=== PATIENT | male | born 1950 | race Caucasian/White ===

== ENCOUNTER → 2019-03-25 10:51 | Outpatient (BNVA) | payer OTHER, SELFPAY | PROVIDERS: Family Provider Internal Medicine; PCP Internal Medicine; Referring Provider Nurse Practitioner; Visit Provider Specialist | DX: M19.031 Primary osteoarthritis, right wrist (principal) | CPT/HCPCS: 73110 ==

== ENCOUNTER → 2019-04-01 10:43 | Outpatient (BNVA) | payer OTHER, SELFPAY | PROVIDERS: Family Provider Internal Medicine; PCP Internal Medicine; Visit Provider Psychiatry & Neurology Neurology | DX: G56.03 Carpal tunnel syndrome, bilateral upper limbs (principal) | CPT/HCPCS: 95886; 95911 ==

== ENCOUNTER → 2019-04-20 08:01 | Outpatient (BNVA) | payer OTHER, BC, SELFPAY | PROVIDERS: Family Provider Internal Medicine; PCP Internal Medicine; Visit Provider Urology | DX: N39.9 Disorder of urinary system, unspecified (principal); N52.9 Male erectile dysfunction, unspecified; C61 Malignant neoplasm of prostate | CPT/HCPCS: 81001 ==

== ENCOUNTER 2019-08-31 08:22 | Outpatient (CLI) | payer OTHER, SELFPAY ==
--- NOTE | 2019-08-31 08:51 | XR_ITS ---
WS: [id number] CHEST 2 VIEWS HISTORY: PROSTATE CANCER COMPARISON: None available. Lungs: Clear with no abnormality. No pleural effusion or pneumothorax. Cardiac size: Normal. Mediastinum/Aorta: Normal mediastinum. Bones: Prior anterior cervical fusion. Advanced degenerative changes at the AC joints bilaterally. Pr ior RIGHT rotator cuff repair. XR/XR chest 2V* [id number] IMPRESSION: No acute cardiopulmonary disease. Negative chest.
[2019-08-31 08:53] LABS: Basophils # 0.1 10^3/uL (0.0-0.1); Basophils % 1.3 %; Eosinophils # 0.2 10^3/uL (0.0-0.8); Eosinophils % 2.8 %; Hematocrit 47.7 % (42.0-52.0); Hemoglobin 14.6 g/dL (11.7-16.6); Lymphocytes # 1.4 10^3/uL (0.8-4.8); Mean Corpuscular HGB Conc 30.6 g/dL (30.0-36.0); Mean Corpuscular Hemoglobin 25.7 pg (28.0-34.0); Mean Corpuscular Volume 83.8 fL (80-94); Mean Platelet Volume 12.5 fL (7.4-10.4); Monocytes # 0.4 10^3/uL (0.2-0.9); Neutrophils % 65.7 %; Nucleated Red Blood Cells % 0 %; Platelet Count 101 10^3/cmm (130-400); Red Blood Count 5.69 10^6/uL (4.1-5.3); Red Cell Distribution Width 15.1 % (12.1-15.1); White Blood Count 6.1 10^3/uL (4.0-10.0)
[2019-08-31 09:14] LABS: Alanine Aminotransferase 14 U/L (0-41); Albumin Level 4.4 g/dL (3.5-5.2); Alkaline Phosphatase 63 IU/L (40-130); Anion Gap 16.6 (5-19); Aspartate Amino Transferase 16 U/L (0-40); Blood Urea Nitrogen 18 mg/dL (8-23); Calcium 9.4 mg/dL (8.5-10.5); Carbon Dioxide 28 mmol/L (22-29); Chloride 101 mmol/L (98-107); Globulin 2.7 g/dL (1.3-4.6); Glomerular Filtration Rate 84.2 mL/min (90-130); Glucose 144 mg/dL (65-115); Osmolality Calculated 293 mOsm/kg (285-295); Potassium 3.6 mmol/L (3.5-5.1); Sodium 142 mmol/L (136-145); Total Bilirubin 0.4 mg/dL (0.15-1.2); Total Protein 7.1 g/dL (6.6-8.7)
--- NOTE | 2019-08-31 10:32 | ECG_ITS ---
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 Measurements Intervals Foster Rate: 51 P: 49 LA: 181 QRS: 78 QRSD: 100 T: 79 QT: 450 QTc: 414 Interpretive Statements SINUS BRADYCARDIA No previous ECG available for comparison Electronically Signed On 08-31-2019 18:28:05 CDT by Ronda Kline M.D. [id number]
== END 2019-08-31 08:23 | disposition home or self-care (01) ==
LOC: LAB 08:24
PROVIDERS: Family Provider Internal Medicine; PCP Internal Medicine; Visit Provider Urology
DX: Z01.818 Encounter for other preprocedural examination (principal); C61 Malignant neoplasm of prostate
CPT/HCPCS: 36415; 71046; 80053; 81001; 85025; 93005

== ENCOUNTER → 2020-02-10 09:27 | Outpatient (BNVA) | payer OTHER, BC, SELFPAY | PROVIDERS: Family Provider Internal Medicine; PCP Internal Medicine; Visit Provider Urology | DX: Z01.812 Encounter for preprocedural laboratory examination (principal); Z20.828 Contact with and (suspected) exposure to other viral communicable diseases | CPT/HCPCS: 87635 ==

== ENCOUNTER → 2021-01-23 14:00 | Outpatient (BNVA) | payer OTHER, SELFPAY | PROVIDERS: Family Provider Internal Medicine; PCP Internal Medicine; Referring Provider Nurse Practitioner; Visit Provider Specialist | DX: M25.511 Pain in right shoulder (principal); Z98.890 Other specified postprocedural states | CPT/HCPCS: 73030 ==

== ENCOUNTER → 2021-04-03 10:05 | Outpatient (BNVA) | payer OTHER, SELFPAY | PROVIDERS: Family Provider Internal Medicine; PCP Internal Medicine; Visit Provider Surgery | DX: Z11.52 Encounter for screening for COVID-19 (principal) | CPT/HCPCS: 87635 ==

== ENCOUNTER 2021-04-07 08:11 | Day surgery (SDC) | payer OTHER, BC, SELFPAY ==
[2021-04-05 14:54] VITALS: BMI 27.8
--- NOTE | 2021-04-07 08:39 | P.ANESASSM_ITS ---
Pre-Anesthetic Assessment Height/Weight: Height 1.8 m Weight 90.718 kg Preop Diagnosis: upper gi symptoms Operation Date: 04/07/21 09:30 Proposed Procedures p EGD/Colon 77598 K21.9(Not Applicable) - Kike Muller MD s Colonoscopy 63527 Z12.11(Not Applicable) - Kike Muller MD Familial anesthetic complications: Bibe Was Beta Nohemi taken within 24 hours: N/A Was Clonidine taken within 24 hours: N/A Last intake: 04/06 Social No alcohol and No tobacco Exam alert, oriented x 3, clear to auscultation bilaterally and regular rate & rhythm Airway Submandibular: within normal limits Cervical ROM: within normal limits Mallampati: Class II Dentition: chipped Pulmonary Chronic Obstructive Pulmonary Disease CV/HEM Hypertension METS > 4 Hx of radical prostatectomy Hepatic Hemochromatosis GI Gastroesophageal Reflux Disease Metabolic None reported Musc/skel Lower Back Pain Hx of back and neck surgery Neuropsych None reported Anesthetic Plan ASA status: 3 (70 year old male with hx of COPD, HTN, hemachromatosis, and GERD s/p radical prostatectomy ) Other: I discussed with the patient risks, goals, and benefits of MAC and general anesthesia. We discussed spectrum of MAC anesthesia including conversion to general as well as possibility of recall of intraoperative stimuli including discomfort/pain. Patient agrees to proceed with MAC. Risk of > 500 ml blood loss (7ml/kg in children): No Medications/Allergies Home Medications Medication Instructions Recorded Confirmed Last Taken Type alprazolam 0.5 mg tablet (Xanax) 0.5 mg PO BID 03/25/19 04/05/21 Unknown History cetirizine 10 mg tablet (Zyrtec) 5 mg PO ONCE 03/25/19 04/05/21 Unknown History celecoxib 100 mg capsule 100 mg PO DAILY 04/20/19 04/05/21 Unknown History losartan 100 1 tab PO DAILY tab 04/20/19 04/05/21 Unknown History mg-hydrochlorothiazide 12.5 mg tablet metformin 500 mg tablet 500 mg PO DAILY 04/20/19 04/05/21 Unknown History amlodipine 5 mg tablet 5 mg PO DAILY 01/23/21 04/05/21 Unknown History gabapentin 300 mg capsule 300 mg PO TID 01/23/21 04/05/21 Unknown History omeprazole 40 mg capsule,delayed 40 mg PO DAILY 02/06/21 04/05/21 Unknown History release Allergies Allergy/AdvReac Type Severity Reaction Status Date / Time codeine AdvReac Unknown heartburn Verified 02/06/21 08:02 [facility] Anesthesia Medical History Adenocarcinoma of prostate COPD (chronic obstructive pulmonary disease) Erectile dysfunction GERD (gastroesophageal reflux disease) Hemochromatosis Stress incontinence, male Surgical History H/O arthroscopic knee surgery H/O esophagogastroduodenoscopy History of back surgery History of bilateral carpal tunnel release History of fusion of cervical spine History of radical prostatectomy ROBOTIC History of rotator cuff surgery Right side 3x Hx of cataract surgery bilateral Hx of oral surgery Status post colonoscopy Family History Mother , at age 84 -heart disease No problems noted. Father , at age 83- Dementia Other CAD (coronary artery disease) Cancer Diabetes Social History Alcohol intake: current Alcohol intake frequency: holidays/special occasions only Adopted: No Caregiver/support person: No Lives independently: No Household members: spouse Marital status: Current occupational status: employed Data Anesthesia Cardiac Studies: No Data to Display
[2021-04-07 08:48] VITALS: BP 162/88; PULSE 63; RESP 18; TEMP 36.7; O2SAT 99
[2021-04-07] MEDS: sodium chloride 0.9% 1,000 ML 30 ML IV (09:03)
--- NOTE | 2021-04-07 09:17 | P.HP_ITS ---
Same Day Surgery H&P Indication for Procedure/HPI DATE OF PROCEDURE: April 07, 2021 CHIEF COMPLAINT/INDICATIONFOR SURGICAL PROCEDURE: screening PREOP DIAGNOSIS: upper gi symptoms PLANNED PROCEDURE: Operation Date: 04/07/21 09:30 Proposed Procedures p EGD/Colon 16164 K21.9(Not Applicable) - Kike Muller MD s Colonoscopy 97729 Z12.11(Not Applicable) - Kike Muller MD Medications/Allergies* Home Medications Medication Instructions Recorded Confirmed Type alprazolam 0.5 mg tablet (Xanax) 0.5 mg PO DAILY 03/25/19 04/07/21 History cetirizine 10 mg tablet (Zyrtec) 5 mg PO ONCE 03/25/19 04/07/21 History celecoxib 100 mg capsule (Celebrex) 100 mg PO DAILY 04/20/19 04/07/21 History losartan 100 1 tab PO DAILY tab 04/20/19 04/07/21 History mg-hydrochlorothiazide 12.5 mg tablet metformin 500 mg tablet 500 mg PO DAILY 04/20/19 04/07/21 History amlodipine 5 mg tablet 5 mg PO DAILY 01/23/21 04/07/21 History gabapentin 300 mg capsule 300 mg PO TID 01/23/21 04/07/21 History omeprazole 40 mg capsule,delayed 40 mg PO DAILY 02/06/21 04/07/21 History release Allergies/Adverse Reactions Allergy/AdvReac Type Severity Reaction Status Date / Time codeine AdvReac Unknown heartburn Verified 04/07/21 08:45 Current Medications: Generic Name Dose Route Start Last Admin Trade Name Freq PRN Reason Stop Dose Admin Sodium Chloride 1,000 mls @ 30 mls/hr 04/07/21 08:30 04/07/21 09:03 Sodium Chloride 0.9% IV 04/08/21 08:29 30 mls/hr .Q24H MED Administration Pertinent History/Comorbid Conditions* Medical History (Updated 02/06/21 @ 08:53 by Kike Muller MD) Adenocarcinoma of prostate COPD (chronic obstructive pulmonary disease) Erectile dysfunction GERD (gastroesophageal reflux disease) Hemochromatosis Stress incontinence, male Surgical History (Updated 02/06/21 @ 08:26 by Kike Muller MD) H/O arthroscopic knee surgery H/O esophagogastroduodenoscopy History of back surgery History of bilateral carpal tunnel release History of fusion of cervical spine History of radical prostatectomy ROBOTIC History of rotator cuff surgery Right side 3x Hx of cataract surgery bilateral Hx of oral surgery Status post colonoscopy Family History (Updated 04/20/19 @ 07:58 by Hamida Khan LPN) Father, at age 83- Mother, at age 84 -heart disease Diabetes CAD (coronary artery disease) Dementia Father Cancer Social History Alcohol intake: current Alcohol intake frequency: holidays/special occasions only Adopted: No Caregiver/support person: No Lives independently: No Household members: spouse Marital status: Current occupational status: employed Pertinent Exam Findings alert, oriented x 3 and regular rate & rhythm Recommendations Surgery/Procedure today Coding Level of Care Code Acute Prosthodontist/Educator for Mellissa Lawrence
[2021-04-07 09:46] VITALS: BP 118/74; RESP 14; TEMP 36.1; O2SAT 95
[2021-04-07 10:05] VITALS: BP 158/76; PULSE 65; RESP 16; O2SAT 96
--- NOTE | 2021-04-07 12:58 | ANE.PACU2 ---
Inpatient post-anesthesia follow up: Airway intact: Yes Vital signs: Temperature 97.0 F Pulse Rate 65 Respiratory Rate 16 Blood Pressure 158/76 Pulse Oximetry 96 Oxygen Delivery Me thod Room Air Oxygen Flow Rate Fraction of Inspir ed Oxygen Hydration adequate: Yes Nausea and vomiting: No Pain level: 1 Mental status: Baseline
== END 2021-04-07 10:25 | disposition home or self-care (01) ==
PROVIDERS: PCP Internal Medicine; Visit Provider Surgery
PROC: 0DJD8ZZ Inspection of Lower Intestinal Tract, Via Natural or Artificial Opening Endoscopic (ICD-10-PCS; CPT 45378; 2021-04-07 09:30)
PROC: 0DJ08ZZ Inspection of Upper Intestinal Tract, Via Natural or Artificial Opening Endoscopic (ICD-10-PCS; CPT 43235; 2021-04-07 09:30)
DX: Z12.11 Encounter for screening for malignant neoplasm of colon (principal); K21.9 Gastro-esophageal reflux disease without esophagitis; K29.70 Gastritis, unspecified, without bleeding; K57.30 Diverticulosis of large intestine without perforation or abscess without bleeding; K64.8 Other hemorrhoids; D12.0 Benign neoplasm of cecum; D12.8 Benign neoplasm of rectum; J44.9 Chronic obstructive pulmonary disease, unspecified; I10 Essential (primary) hypertension; Z90.79 Acquired absence of other genital organ(s); Z79.84 Long term (current) use of oral hypoglycemic drugs
CPT/HCPCS: 43239; 45380; 88305; J2704; J7030

== ENCOUNTER → 2021-08-23 08:50 | Outpatient (BNVA) | payer OTHER, SELFPAY | PROVIDERS: PCP Internal Medicine; Referring Provider Nurse Practitioner; Visit Provider Specialist | DX: M17.12 Unilateral primary osteoarthritis, left knee (principal); M72.2 Plantar fascial fibromatosis | CPT/HCPCS: 73560; 73565; 99213; 99214 ==

== ENCOUNTER → 2021-09-28 08:45 | Outpatient (BNVA) | payer OTHER, SELFPAY | PROVIDERS: PCP Internal Medicine; Visit Provider Specialist | DX: M17.12 Unilateral primary osteoarthritis, left knee (principal) | CPT/HCPCS: 20610 ==

== ENCOUNTER → 2021-11-16 11:19 | Outpatient (BNVA) | payer OTHER, SELFPAY | PROVIDERS: PCP Internal Medicine; Visit Provider Specialist | DX: M12.811 Other specific arthropathies, not elsewhere classified, right shoulder (principal) | CPT/HCPCS: 20610; J1100; J2795; J3301 ==

== ENCOUNTER → 2022-02-22 10:48 | Outpatient (BNVA) | payer OTHER, SELFPAY | PROVIDERS: PCP Internal Medicine; Visit Provider Specialist | DX: M12.811 Other specific arthropathies, not elsewhere classified, right shoulder (principal) | CPT/HCPCS: 20610; J1100; J2795; J3301 ==

== ENCOUNTER → 2022-04-26 08:40 | Outpatient (BNVA) | payer OTHER, SELFPAY | PROVIDERS: PCP Internal Medicine; Visit Provider Specialist | DX: M17.12 Unilateral primary osteoarthritis, left knee (principal); Z71.89 Other specified counseling | CPT/HCPCS: 20610; J7326 ==

== ENCOUNTER → 2022-06-18 08:08 | Outpatient (BNVA) | payer OTHER, SELFPAY | PROVIDERS: PCP Internal Medicine; Visit Provider Specialist | DX: M17.12 Unilateral primary osteoarthritis, left knee (principal); E11.9 Type 2 diabetes mellitus without complications; R25.2 Cramp and spasm | CPT/HCPCS: 36415; 73560; 73565; 80053; 83036; 99213 ==

== ENCOUNTER 2022-08-07 20:00 | Outpatient (CLI) | payer OTHER, SELFPAY | END 2022-08-08 05:26 | disposition home or self-care (01) | LOC: SLEEP 08-09 09:39 | PROVIDERS: PCP Internal Medicine; Visit Provider Nurse Practitioner | DX: M17.9 Osteoarthritis of knee, unspecified (principal); G47.33 Obstructive sleep apnea (adult) (pediatric) | CPT/HCPCS: 20610; 95810; J1100; J2795; J3301 ==

== ENCOUNTER → 2022-09-06 13:50 | Outpatient (BNVA) | payer OTHER, SELFPAY | PROVIDERS: PCP Internal Medicine; Visit Provider Specialist | DX: M12.811 Other specific arthropathies, not elsewhere classified, right shoulder (principal) | CPT/HCPCS: 20610; J1100; J2795; J3301 ==

== ENCOUNTER 2022-10-23 20:00 | Outpatient (CLI) | payer OTHER, SELFPAY | END 2022-10-23 20:01 | disposition home or self-care (01) | LOC: SLEEP 10-24 04:51 | PROVIDERS: PCP Internal Medicine; Visit Provider Nurse Practitioner | DX: G47.33 Obstructive sleep apnea (adult) (pediatric) (principal) | CPT/HCPCS: 95811 ==

== ENCOUNTER → 2022-11-28 10:16 | Outpatient (BNVA) | payer OTHER, SELFPAY | PROVIDERS: PCP Internal Medicine; Visit Provider Specialist | DX: M17.12 Unilateral primary osteoarthritis, left knee (principal); Z01.818 Encounter for other preprocedural examination | CPT/HCPCS: 36415; 73560; 73565; 80053; 81003; 83036; 85025; 99214 ==

== ENCOUNTER → 2022-12-06 11:28 | Outpatient (BNVA) | payer OTHER, SELFPAY | PROVIDERS: PCP Internal Medicine; Visit Provider Specialist | DX: M12.811 Other specific arthropathies, not elsewhere classified, right shoulder (principal) | CPT/HCPCS: 20610; J1100; J2795; J3301 ==

== ENCOUNTER 2022-12-13 10:11 | Outpatient (CLI) | payer OTHER, SELFPAY ==
[2022-12-13 10:59] LABS: Add Urine Microscopic? NO; Charge for UA Resulting for Rev
[2022-12-13 11:02] LABS: Bilirubin Urine Neg (Negative); Blood Urine Neg (Negative); Glucose Urine UA Norm (Normal); Ketones Urine Negative (Negative); Leukocyte Esterase Urine Negative (Negative); Nitrate Urine Negative (Negative); Protein Urine Neg (Negative); Urine Appearance Clear (CLEAR); Urine Color Yellow (Yellow); Urobilinogen Urine Norm (Negative); pH Urine 5 (5-7)
[2022-12-13 11:02] LABS: Basophils # 0.1 10^3/uL (0.0-0.1); Basophils % 1.3 %; Eosinophils # 0.2 10^3/uL (0.0-0.8); Eosinophils % 2.9 %; Hematocrit 46.1 % (37-53); Lymphocytes # 1.6 10^3/uL (0.8-4.8); Lymphocytes % 20.8 %; Mean Corpuscular HGB Conc 31.2 g/dL (30-55); Mean Corpuscular Hemoglobin 25.5 pg (27-33); Mean Corpuscular Volume 81.6 fl (82-101); Mean Platelet Volume 11.3 fL (7.4-10.4); Monocytes # 0.5 10^3/uL (0.2-0.9); Monocytes % 6.8 %; Neutrophils # 5.08 10^3/uL (1.8-7.7); Neutrophils % 67.8 %; Nucleated Red Blood Cells % 0 %; Platelet Count 186 10^3/cmm (157-399); Red Blood Count 5.65 10^6/uL (3.85-5.65)
[2022-12-13 11:27] LABS: Albumin Level 4.5 g/dL (3.5-5.2); Alkaline Phosphatase 67 U/L (40-130); Anion Gap 13.7 (5-19); Aspartate Amino Transferase 13 U/L (0-40); Blood Urea Nitrogen 16 mg/dL (8-23); Calcium 9.2 mg/dL (8.5-10.5); Carbon Dioxide 30 mmol/L (22-29); Chloride 99 mmol/L (98-107); Globulin 2.3 g/dL (1.3-4.6); Glucose 184 mg/dL (65-115); Osmolality Calculated 294 mOsm/kg (285-295); Potassium 3.7 mmol/L (3.5-5.1); Sodium 139 mmol/L (136-145); Total Bilirubin 0.6 mg/dL (0.15-1.2); Total Protein 6.8 g/dL (6.6-8.7)
[2022-12-13 11:38] LABS: Alanine Aminotransferase 15 U/L (0-41)
--- NOTE | 2022-12-13 12:00 | CT_ITS ---
WS: [id number] CT LEFT KNEE, NONCONTRAST TECHNIQUE: Noncontrast CT of the LEFT knee to include the LEFT hip and ankle. CLINICAL INFORMATION: KNEE PAIN COMPARISON: None. DLP: 991.[address] scans at [facility] use at least one of these dose optimization techniques: automated e xposure control; mA and/or kV adjustment per patient size (includes targeted exams where dose is matc hed to clinical indication); or iterative reconstruction. FINDINGS: Advanced degenerative arthritis LEFT knee worse in the medial joint compartment. Hypertrophic changes along the joint line. Hypertrophic patella. Vascular calcification. Sigmoid diverticulosis. Penile p ump prosthesis. Degenerative arthritis both hips. Small lobulated popliteal cyst with internal debris . Popliteal cyst measures 1.6 x 1.6 cm IMPRESSION: Images obtained for preoperative purposes.
== END 2022-12-13 10:12 | disposition home or self-care (01) ==
PROVIDERS: PCP Internal Medicine; Visit Provider Specialist
DX: M17.12 Unilateral primary osteoarthritis, left knee (principal)
CPT/HCPCS: 36415; 73700; 80053; 81003; 85025

== ENCOUNTER 2022-12-18 22:08 | Observation (INO) | payer OTHER, SELFPAY ==
[2022-12-17 10:59] VITALS: BMI 27.8
[2022-12-18] VITALS (12 sets, daily range): BP systolic 110–161; BP diastolic 75–90; PULSE 52–68; RESP 12–21; TEMP 36–36.8; O2SAT 91–98
[2022-12-18] MEDS: gabapentin 300 mg Capsule PO ×2 (12:40→21:47)
[2022-12-18] MEDS: acetaminophen 1,000 MG/100 ML PIGGYBACK 400 MG IV ×2 (12:41→23:46)
[2022-12-18] MEDS: CELEcoxib 200 mg Capsule 400 MG PO (12:41)
[2022-12-18] MEDS: sodium chloride 0.9% 1,000 ML 30 ML IV (12:41)
[2022-12-18] MEDS: citric acid-sodium citrate 30 mL UDC PO (13:27)
[2022-12-18] MEDS: HYDROmorphone 1 mg/mL INJ 1 mL 0.5 MG IVP (13:28)
--- NOTE | 2022-12-18 14:02 | ANES.PREANE2 ---
Pre-Anesthetic Assessment Height/Weight: Height 1.8 m Weight 90.718 kg Temp Pulse Resp BP Pulse Ox O2 Del Method 96.8 F L 53 L 18 150/86 96 Room Air 12/18/22 12:27 12/18/22 12:27 12/18/22 12:27 12/18/22 12:27 12/18/22 12:27 12/18/22 12:31 Operation Date: 12/18/22 14:00 Proposed Procedures p LEFT TOTAL KNEE ARTHROPLASTY WITH [facility] GUIDANCE 69228,M17.10(Left) - Kassandra Leonardo MD Familial anesthetic complications: none Was Beta Nohemi taken within 24 hours: N/A Was Clonidine taken within 24 hours: N/A Last intake: Intake Last Liquid Date 12/17/22 Last Liquid Time 22:00 Last Solid Date 12/17/22 Last Solid Time 20:00 Social No alcohol and No tobacco Exam alert, oriented x 3, clear to auscultation bilaterally and regular rate & rhythm Airway Submandibular: within normal limits Cervical ROM: within normal limits Mallampati: Class II Dentition: full CV/HEM Hypertension GI Gastroesophageal Reflux Disease [facility] [place] Osteoarthritis/DJD Anesthetic Plan ASA status: 2 Anesthesia: Regional (specify below) (SAB with adductor blk) Medications/Allergies Home Medications Medication Instructions Recorded Confirmed Last Taken Type alprazolam 0.5 mg tablet (Xanax) 0.5 mg PO DAILY 03/25/19 12/17/22 12/17/22 History cetirizine 10 mg tablet (Zyrtec) 5 mg PO ONCE 03/25/19 12/17/22 12/17/22 History losartan 100 1 tab PO DAILY 04/20/19 12/17/22 12/17/22 History mg-hydrochlorothiazide 12.5 mg tablet amlodipine 5 mg tablet 5 mg PO DAILY 01/23/21 12/17/22 12/17/22 History gabapentin 300 mg capsule 300 mg PO TID 01/23/21 12/17/22 12/17/22 History omeprazole 40 mg capsule,delayed 40 mg PO DAILY 02/06/21 12/18/22 12/18/22 07:00 History release celecoxib 100 mg capsule (Celebrex) 100 mg PO BID PRN Pain 12/13/22 12/17/22 Unknown History montelukast 10 mg tablet 1 tab PO DAILY 12/13/22 12/17/22 12/17/22 History Allergies Allergy/AdvReac Type Severity Reaction Status Date / Time codeine AdvReac Unknown heartburn Verified 12/18/22 12:22 Current Medications Generic Name Dose Route Start Last Admin Trade Name Abebeq PRN Reason Stop Dose Admin Sodium Chloride 1,000 mls @ 30 mls/hr 12/18/22 12:15 12/18/22 12:41 Sodium Chloride 0.9% IV 12/19/22 12:14 30 mls/hr .Q24H MED Administration PFSH Anesthesia Medical History Adenocarcinoma of prostate Colon polyp COPD (chronic obstructive pulmonary disease) Erectile dysfunction GERD (gastroesophageal reflux disease) Hemochromatosis Stress incontinence, male Surgical History H/O arthroscopic knee surgery H/O esophagogastroduodenoscopy (04/07/21) History of back surgery History of bilateral carpal tunnel release History of fusion of cervical spine History of radical prostatectomy ROBOTIC History of rotator cuff surgery Right side 3x Hx of cataract surgery bilateral Hx of oral surgery Status post colonoscopy (04/07/21) Family History Mother , at age 84 -heart disease No problems noted. Father , at age 83- Dementia Other CAD (coronary artery disease) Cancer Diabetes Social History Smoking and tobacco status: former smoker Alcohol intake: current Alcohol intake frequency: holidays/special occasions only Substance/Drug Use: unknown Adopted: No Caregiver/support person: No Lives independently: No Household members: spouse Marital status: Current occupational status: employed Data Anesthesia Cardiac Studies: No Data to Display
[2022-12-18] MEDS: ceFAZolin 2,000 MG in sodium chloride 0.9% (plus) 50 ML 100 MG IV ×2 (14:38→23:37)
--- NOTE | 2022-12-18 14:41 | XRR_ITS ---
PROCEDURE INFORMATION: Exam: XR Pelvis Exam date and time: 12/18/2022 2:48 PM Age: 72 years old Clinical indication: Device placement; Other: Hugh, prior surgery; Surgery date: Post-operative (0-2 days); Additional info: S/P hugh, low ap pelvis TECHNIQUE: Imaging protocol: Radiologic exam of the pelvis. Views: 1 or 2 view. COMPARISON: CR XR hip RT 2-3V wo/w pel* [id number] 01/14/2017 3:39 PM FINDINGS: Bones/joints: Satisfactory immediate postoperative appearance of left total hip arthroplasty. Soft tissues: Postoperative gas in the soft tissues.
--- NOTE | 2022-12-18 14:48 | W.PM.OPSUD ---
Surgery/Procedure H&P Update DATE OF PROCEDURE: December 18, 2022 DATE H&P PERFORMED: 12/13/22 H&P UPDATE INFORMATION: I have reviewed H&P completed within last 30 days, I have examined patient prior to procedure, No changes to prior documentation and H&P is in [facility] EMR on date indicated CHANGES TO PREVIOUS DOCUMENTATION: The patient notes that he has a bladder sphincter for urinary control after his prostate cancer. Apparently, this has been malfunctioning. I have confirmed that the malfunction is leakage rather than difficulty opening the sphincter. Preoperatively, anesthesia and I discussed with the patient options for anesthesia as well as the possibility that if he were to become obstructed, this may require transfer to a facility that has a urologist. The patient and his understand. They note they would like to be transferred to [place] if it is necessary. We are hoping that this is not in the future. PLANNED PROCEDURE: Operation Date: 12/18/22 14:00 Proposed Procedures p LEFT TOTAL KNEE ARTHROPLASTY WITH [facility] GUIDANCE 52923,M17.10(Left) - Kassandra Leonardo MD Related Problem List Diagnoses (1) Primary osteoarthritis of left knee:
--- NOTE | 2022-12-18 15:39 | SUR.OPER ---
Family Notified Of Patient's Status Via Phone.
[2022-12-18] MEDS: vancomycin 1,000 MG SDV 1000 MG XX (15:57)
[2022-12-18] MEDS: ceFAZolin 1,000 mg SDV 2000 MG IRRIGATION (15:58)
[2022-12-18] MEDS: BUPivacaine 0.5% INJ 30 mL 20 ML INJECTION (15:58)
[2022-12-18] MEDS: BUPivacaine liposome 13.3 mg/mL SDV 10 mL 266 MG INFILTRATI (15:58)
--- NOTE | 2022-12-18 16:08 | ANES.PROC ---
Anesthesia Procedures Procedure/Date: 12/18/22 Nerve Block ^: Nerve Block 1: Main Anesthesia: general anesthesia Time Out Performed: Yes Consent: requested by attending/covering physician, from patient, risks and benefits reviewed and patient agrees to proceed Nerve block location: adductor canal (left) Anesthesia monitors applied: pulse oximetry, EKG, BP cuff and oxygen Nerve block position: supine Anesthetic Used: ropivicaine 0.5% Amount of anesthesia used (mL): 20 Ultrasound used to: recognize landmarks Nerve Stimulator Used?: No Interscalene/Femoral BLK: 4 stimuplex 21 g needle used for position and inplane approach Injection: neg aspiration of heme Patient Tolerated Procedure: well Complications: none
--- NOTE | 2022-12-18 18:01 | P.OP_ITS ---
Operative Report Date of procedure: December 18, 2022 Pre-op diagnosis: Primary osteoarthritis left knee Post-op diagnosis: Primary osteoarthritis left knee Post-op findings: Severe osteoarthritis left knee with minimal osteophytes Procedure done: Left total knee arthroplasty with Thang guidance Implants: The [place] total knee system with a size 5 triathlon beaded cruciate retaining femur left, a triathlon titanium tibial component size?5 beaded, a triathlon X3 tibial bearing CS insert size 5 X 9 mm and a beaded triathlon titanium asymmetric patella size 38 x 11 mm Specimens removed/disposition: Bone, disposed of Surgeon: Kassandra Leonardo MD Floor Tiling Professional: Nancy Blake NP. Services of a nurse practitioner activities assistant were required for exposure, positioning, and completion of the surgical procedure. Anesthesia: General (Per LMA, ASA 2, with supplemental adductor block) Estimated blood loss (mL): 200 Tourniquet time (min): 0 (Not utilized) IV fluids (mL): 1,100 Urine output (mL): 200 Complications: None Findings: Severe degenerative osteoarthritis left knee with minimal osteophytes. Condition: stable Disposition: PACU (Then discharged to floor for pain management and physical therapy) Brief History: This is an established 72 year old male patient here today for left total knee arthroplasty with Thang guidance. Patient states that the injection therapy is no longer helping relieve his pain. Patient states that he is having pain to the medial, lateral and posterior knee. Patient states that he is having to have a abdominal surgery and would like to have the knee replacement prior to this. Consents are signed in the office, questions were answered, and the patient wished to proceed as noted above. Procedure: The patient was brought to the operating theater, and after undergoing general anesthesia per LMA with supplemental adductor block, ASA 3, the left lower extremity was prepped with Dura-Prep and draped in usual fashion following placement of a tourniquet high on the leg. The leg was then draped free.? Tourniquet was not elevated during the case.? A surgical pause was performed, and at the time of the surgical pause, we confirmed the site and side of surgery. Additionally, we confirmed the appropriate and timely administration of preoperative antibiotics, Ancef 2 g and Transexemic acid 1 g.? The availability of equipment was confirmed, and the patient's identity was verbalized as well.? An additional transexemic acid 1 g will be given on the floor as well. Following the surgical pause, an incision was made centering over the patella continuing proximally and distally as necessary to allow access to the knee joint. Dissection continued through skin and soft tissues using a scalpel. Hemostasis was obtained using electrocautery. The skin incision was followed by a median parapatellar arthrotomy. The leg was extended, and the patella was able to be displaced laterally without difficulty.? Medial release was initially accomplished to allow placement for the Thang array.? Appropriate arrays and markers were placed in appropriate position for use of the Thang.? Preoperative planning had been accomplished and was discussed in detail with the Thang agency service representative.? Intraoperative mapping of the femur and tibia was accomplished after the arrays were placed.? Internal markers were also placed.? Once we had accomplished the Thang mapping, we began the appropriate resections for placement of the prosthesis.? The plan was for a cruciate retaining left total knee arthroplasty.? Medial releases were accomplished prior to the surgical procedure to allow balancing of the knee. Once appropriate mapping had been accomplished retraction was established using manual retraction by surgical technicians and also the Thang leg positioner and retractors.? The knee was evaluated.? There was significant osteoarthritic change with significant osteophyte formation a significant varus.? The tibia was cut first with the Thang.? Subsequently, appropriate bone resection of the femur was accomplished using the Thang.? The femur was sized to a size 5.? Osteophytes were removed prior to this portion of the procedure.? We had performed a medial release at the beginning of the procedure to allow for placement of the array and to allow for better planning with flexion and extension adjustments per Thang programming.? Following this resection, it was felt that appropriate size for the tibia was a size 5.? Tray was noted to fit nicely with good coverage.? Rim fit was accomplished with the size 5. A trial reduction was accomplished after osteophytes have been removed as well as the medial and lateral menisci.? We had removed the anterior cruciate ligament at the beginning of the case and preserved the posterior cruciate ligament.? Trial reduction was accomplished with a size 5 femoral posterior cruciate retaining component and a size 5 tibial tray with a size 5 x 9 CS tibial bearing insert.? Alignment was felt to be appropriate.? Trial components were removed after the femur had been drilled.? Prior to removal of the tibial tray which had been pinned in position with appropriate rotation as determined by the Thang plan, we broached the tibia.? Subsequently, the 4 drill holes were made for the prosthetic component.? All trial components were removed, and the wound was irrigated.? Plans were made for insertion of the prosthetic components.? Prior to this, the patella was manually prepared.? After resection of the articular surface with the patellar robertson, it was measured and measured a 35 mm patella.? We resected approximately 11 mm of patella.? Patellar height was restored with the patellar component. Once again, the wound was irrigated.? The Tritanium tibia was impacted into position.? The beaded femur was then impacted into position in a cementless fashion. The CS tibial insert was placed prior to placement of the femoral component. The patella was pressed into position with a patellar clamp.? Exparel was injected about the components deep and superficially.? The knee was then copiously irrigated with betadine and saline and suctioned dry.? Further irrigation was accomplished with saline following the Betadine.? Attention was then directed to closure. Closure was accomplished with 0 Vicryl in the fascial tissues.? This was followed by Surgiflo and vancomycin powder.? Following this, a 2-0 Monocryl was used in the subcutaneous tissues, and the skin was closed with skin shakira.? Care was taken to assure an excellent subcutaneous as well as skin closure.? A sterile dressing was then placed consisting of Dermabond Prineo, OpSite, sterile soft roll including over the foot, and an Trevor wrap. The patient was returned the Recovery Room in a satisfactory condition. X-rays were obtained and reviewed there.? The patient will be discharged to the floor for postoperative rehabilitation and pain management. Related Problem List Diagnoses (1) Primary osteoarthritis of left knee:
--- NOTE | 2022-12-18 18:15 | XRR_ITS ---
PROCEDURE INFORMATION: Exam: XR Left Knee Exam date and time: 12/18/2022 6:18 PM Age: 72 years old Clinical indication: Device placement; Joint replacement hardware; Additional info: Status post left total knee arthroplasty TECHNIQUE: Imaging protocol: Radiologic exam of the left knee. Views: 1 or 2 views. COMPARISON: No relevant prior studies available. FINDINGS: Bones/joints: Status post total left knee arthroplasty with no immediate hardware complications. Soft tissues: Normal. XR/XR knee LT 1-2V [id number] IMPRESSION: Status post total left knee arthroplasty with no immediate hardware complications.
[2022-12-18] MEDS: ondansetron 2 mg/ML SDV 2 mL 4 MG IVP ×2 (18:20→18:32)
[2022-12-18] MEDS: oxyCODONE 5 mg IR Tab/Cap PO (23:42)
[2022-12-19] MEDS: diazePAM 5 mg Tablet PO (04:30)
[2022-12-19 05:53] LABS: Basophils # 0.1 10^3/uL (0.0-0.1); Basophils % 0.5 %; Eosinophils % 0.1 %; Hematocrit 38.8 % (37-53); Lymphocytes # 0.9 10^3/uL (0.8-4.8); Lymphocytes % 5.9 %; Mean Corpuscular HGB Conc 31.7 g/dL (30-55); Mean Corpuscular Hemoglobin 25.8 pg (27-33); Mean Corpuscular Volume 81.3 fl (82-101); Mean Platelet Volume 10.9 fL (7.4-10.4); Monocytes # 0.9 10^3/uL (0.2-0.9); Monocytes % 5.7 %; Neutrophils # 13.61 10^3/uL (1.8-7.7); Neutrophils % 87.5 %; Nucleated Red Blood Cells % 0 %; Platelet Count 173 10^3/cmm (157-399); Red Blood Count 4.77 10^6/uL (3.85-5.65); Red Cell Distribution Width 15.3 % (12.1-15.1); White Blood Count 15.54 10^3/uL (3.29-11.43)
[2022-12-19 05:59] VITALS: RESP 21; O2SAT 97
[2022-12-19] MEDS: oxyCODONE 5 mg IR Tab/Cap PO ×2 (05:59→10:37)
[2022-12-19] MEDS: ceFAZolin 2,000 MG in sodium chloride 0.9% (plus) 50 ML 100 MG IV (06:09)
[2022-12-19] MEDS: acetaminophen 1,000 MG/100 ML PIGGYBACK 400 MG IV (06:14)
[2022-12-19 06:15] LABS: Anion Gap 14.3 (5-19); Blood Urea Nitrogen 18 mg/dL (8-23); Calcium 8.6 mg/dL (8.5-10.5); Carbon Dioxide 24 mmol/L (22-29); Chloride 104 mmol/L (98-107); Creatinine Clr Calc Pharmacy 86.7475; Glucose 141 mg/dL (65-115); Osmolality Calculated 290 mOsm/kg (285-295); Potassium 4.3 mmol/L (3.5-5.1); Sodium 138 mmol/L (136-145)
[2022-12-19 07:25] VITALS: BP 141/70; PULSE 59; RESP 17; TEMP 36.8; O2SAT 95
[2022-12-19 08:50] VITALS: BP 141/70
[2022-12-19] MEDS: hydroCHLOROthiazide 25 mg Tablet 12.5 MG PO (08:50)
[2022-12-19] MEDS: sennosides-docusate Tablet 1 TAB PO (08:50)
[2022-12-19] MEDS: amlodipine 5 mg Tablet PO (08:50)
[2022-12-19] MEDS: losartan 50 mg Tablet 100 MG PO (08:50)
[2022-12-19] MEDS: gabapentin 300 mg Capsule PO (08:50)
[2022-12-19] MEDS: ALPRAZolam 0.5 mg Tablet PO (08:50)
[2022-12-19] MEDS: pantoprazole DR 40 mg Tablet PO (08:50)
[2022-12-19] MEDS: chlorhexidine gluconate 0.12% Btl 473 mL 30 ML MUCOUS MEM (08:51)
[2022-12-19] MEDS: montelukast sodium 10 mg Tablet PO (08:51)
[2022-12-19] MEDS: mupirocin oint 22 gm 1 APPLIC NASAL (08:51)
[2022-12-19 10:37] VITALS: RESP 17
--- NOTE | 2022-12-19 11:18 | PC.CHAP ---
Pastoral Care Encounter/Spiritual Assessment Type of Contact [] Declined security sales consultant visit [] Patient/Family/Request visit [] Outpatient visit [] Follow-up visit [] Physician referral [] Code/Alert [x] Routine visit [] Staff referral [] Actively dying [] Patient sleeping [] Family support [] [] Out of room [] Palliative care [] [] Receiving care in room [] Pre-surgical visit [] Trauma [] Long length of stay [] ICU visit [] Other: Relational/Emotional Strength [x] Patient feels connected with others/family/visitors/staff [] Distress [] Loneliness/isolation [] Abandonment Spirituality of Patient [x] Person of Gracie [x] Attends Muslim of their Gracie [x] Believes in Prayer [] Reads Bible or Temple materials [] There are Spiritual issues to be addressed Odd Ticket Clerk Interventions [x] Prayer [] Active listening [] Non-anxious presence [] Spiritual/emotional support [] Crisis/trauma care [] Spiritual counseling [] Bereavement support [] Provided bereavement packet [] Provided Bible/devotional materials [] Provided toy/stuffed animal, coloring book to patient or family member [] Provided Communion [] Anointing/[place] [] Salvation [] Completed spiritual assessment [] Other: Impact on Illness or Injury [] Angry [] Fearful [] Anxious [] Often cries [] Exhaustion [] Unable to work [] Unable to attend jew [] Unable to walk/stand [] Unable to read [] Unable to drive [] Unable to eat/drink [] Unable to sleep [] Unable to be with family [] Patient intubated [] Other: Summary had a good visit, especially testimony of God healing of cancer Time spent with patient 20 min
--- NOTE | 2022-12-19 13:30 | P.DS_ITS ---
Discharge Providers Date of Admission: 12/18/22 22:08 Date of Discharge: December 19, 2022 Attending Provider at Admission: Kassandra Leonardo MD Attending Provider at Discharge: Kassandra Leonardo MD Primary Care Provider: JENNI Bustillos Diagnoses at Discharge Discharge Diagnosis (1) Status post total left knee replacement not using cement: Status: Acute Permanent problem details: Date of procedure: December 18, 2022 Diagnosis: Primary osteoarthritis left knee Procedure done: Left total knee arthroplasty with Thang guidance Implants: The DotBlu total knee system with a size 5 triathlon beaded cruciate retaining femur left, a triathlon titanium tibial component size 5 beaded, a triathlon X3 tibial bearing CS insert size 5 X 9 mm and a beaded triathlon titanium asymmetric patella size 38 x 11 mm (2) Primary osteoarthritis of left knee: Status: Acute Reason for Visit Reason for Visit: 37991 M17.10 Brief History: This is an established 72 year old male patient here today for left total knee arthroplasty with Thang guidance. Patient states that the injection therapy is no longer helping relieve his pain. Patient states that he is having pain to the medial, lateral and posterior knee. Patient states that he is having to have a abdominal surgery and would like to have the knee replacement prior to this.? Consents are signed in the office, questions were answered, and the patient wished to proceed as noted above. Hospital Course Hospital Course This 72-year-old gentleman was admitted under observation status following left total knee arthroplasty with Thang guidance. He did well following the procedure. He worked with physical therapy. He was independent and felt safe for discharge to home. Dressing was removed, there was little to no swelling or ecchymosis. The patient was neurologically intact. He was able to straight leg raise with minimal pain. He was discharged home on the first postoperative day to follow-up with home health and with me in the office as scheduled. Physical Exam Const: COMMON NORMALS: no acute distress, average body habitus, patient oriented x3 and alert GENERAL APPEARANCE: cooperative and comfortable O RIENTATION/CONSCIOUSNESS: Yes awake HENMT: COMMON NORMALS: normocephalic and atraumatic HEAD & SCALP: normo cephalic and atraumatic Eye: GENERAL EYE: appearance normal, both eyes and all related structures Chest: COMMONS NORMALS: normal inspection of the chest Resp: COMMON NORMALS: normal respiratory effort EFFORT & INSPECTION: Yes able to speak in complete sentences and Yes symmetric chest movement Extremity: LEFT LOWER EXTREMITY: Yes knee joint (Dressing removed with minimal to no swelling.) Left knee: Yes inspection (Minimal ecchymosis), Yes ROM (Not evaluated) and Yes neurovascular exam (Intact distally) Neuro: COMMON NORMALS: patient oriented x3 SENSORIUM/ORIENTATION: Yes alert Psych: COMMON NORMALS: mental status grossly normal APPEARANCE: Yes grossly normal ATTITUDE: Yes calm and Yes engaged ATTENTION/CONCENTRATION: Yes attention grossly intact Skin: COMMON NORMALS: no rashes or lesions noted GENERAL SKIN EXAM: no rashes or lesions noted Urinary Catheter Management: Baez: Cath Placed During This Visit: yes, but has since been removed by the nurse Reason for Continuing Indwelling Catheter: Decision to DC Catheter Urinary Catheter Date of Insertion: 12/18/22 Urinary Catheter Time of Insertion: 15:00 Date Urinary Catheter Removed: 12/19/22 Time Urinary Catheter Discontinued: 04:30 Discharge Data Studies Completed and Pending Completed Studies During Hospitalization Category Date Time Status XR knee LT 1-2V [id number] Routine Exams 12/18/22 18:15 Completed Pending at discharge Category Date Time Status Basic Metabolic Panel AM LABS Lab 12/20/22 04:00 Ordered Complete Blood Count w/Auto AM LABS Lab 12/20/22 04:00 Ordered Radiology Impressions Knee X-Ray 12/18/22 18:15 IMPRESSION: Status post total left knee arthroplasty with no immediate hardware complications. Laboratory Results WBC 15.54 10^3/uL (3.29-11.43) H 12/19/22 05:38 RBC 4.77 10^6/uL (3.85-5.65) 12/19/22 05:38 Hgb 12.30 g/dL (11.27-16.99) 12/19/22 05:38 Hct 38.8 % (37-53) 12/19/22 05:38 MCV 81.3 fl (82-101) L 12/19/22 05:38 MCH 25.8 pg (27-33) L 12/19/22 05:38 MCHC 31.7 g/dL (30-55) 12/19/22 05:38 RDW 15.3 % (12.1-15.1) H 12/19/22 05:38 Plt Count 173 10^3/cmm (157-399) 12/19/22 05:38 MPV 10.9 fL (7.4-10.4) H 12/19/22 05:38 Neut % (Auto) 87.5 % 12/19/22 05:38 Lymph % (Auto) 5.9 % 12/19/22 05:38 [place] % (Auto) 5.7 % 12/19/22 05:38 Eos % (Auto) 0.1 % 12/19/22 05:38 Baso % (Auto) 0.5 % 12/19/22 05:38 Neut # (Auto) 13.61 10^3/uL (1.8-7.7) H 12/19/22 05:38 Lymph # (Auto) 0.9 10^3/uL (0.8-4.8) 12/19/22 05:38 [place] # (Auto) 0.9 10^3/uL (0.2-0.9) 12/19/22 05:38 Eos # (Auto) 0.0 10^3/uL (0.0-0.8) 12/19/22 05:38 Baso # (Auto) 0.1 10^3/uL (0.0-0.1) 12/19/22 05:38 Nucleated RBC % (auto) 0 % 12/19/22 05:38 Nucleated RBCs # 0.0 /100WBC 12/19/22 05:38 Sodium 138 mmol/L (136-145) 12/19/22 05:38 Potassium 4.3 mmol/L (3.5-5.1) 12/19/22 05:38 Chloride 104 mmol/L (98-107) 12/19/22 05:38 Carbon Dioxide 24 mmol/L (22-29) 12/19/22 05:38 Anion Gap 14.3 (5-19) 12/19/22 05:38 BUN 18 mg/dL (8-23) 12/19/22 05:38 Creatinine 0.9 mg/dL (0.7-1.2) 12/19/22 05:38 GFR Calculation Not Reportable 12/19/22 05:38 Glucose 141 mg/dL (65-115) H 12/19/22 05:38 Calculated Osmolality 290 mOsm/kg (285-295) 12/19/22 05:38 Calcium 8.6 mg/dL (8.5-10.5) 12/19/22 05:38 Vitals Last Vital Signs Temp 98.3 F 12/19/22 07:25 Pulse 59 L 12/19/22 07:25 Resp 17 12/19/22 10:37 BP 141/70 12/19/22 08:50 Pulse Ox 95 12/19/22 07:25 O2 Del Method Room Air 12/19/22 07:25 O2 Flow Rate 2 12/18/22 18:50 Discharge Plan Discharge Patient Disposition: Home Health Service Condition: Stable Prescriptions: New acetaminophen 500 mg Tablet 1,000 mg PO Q8H 15 Days Qty: 0 0RF aspirin 325 mg Tablet,Delayed Release (Dr/Ec) 325 mg PO DAILY 30 Days Qty: 0 0RF oxycodone 5 mg Tablet 5 mg PO Q4H PRN (Reason: Moderate Pain) 7 Days Qty: 30 0RF oxycodone 5 mg tablet 5 mg PO Q4H PRN (Reason: pain) 7 Days Qty: 30 0RF oxycodone 5 mg tablet 5 mg PO Q4H PRN (Reason: pain) 7 Days Qty: 30 0RF Continued gabapentin 300 mg capsule 300 mg PO TID amlodipine 5 mg tablet 5 mg PO DAILY alprazolam [Xanax] 0.5 mg tablet 0.5 mg PO DAILY cetirizine [Zyrtec] 10 mg tablet 5 mg PO ONCE losartan-hydrochlorothiazide 100-12.5 mg tablet 1 tab PO DAILY omeprazole 40 mg capsule,delayed release(DR/EC) 40 mg PO DAILY montelukast 10 mg tablet 1 tab PO DAILY Held celecoxib [Celebrex] 100 mg capsule 100 mg PO BID PRN (Reason: Pain) Hold Instructions: Resume on 01/02/23. You may resume normal Celebrex dosing in 2 weeks Discharge Orders: Discharge Order (Routine); Ordered 12/19/22 Ordered By: Kassandra Leonardo Referrals: Kassandra Leonardo MD [Physician] - 01/02/23 9:15 am Discharge Diet: Advance as tolerated and Usual diet Discharge Activity: Increase activity as tolerated, Limit activity as instructed, Use walker/crutches as instructed and As per PT/OT instructions Patient Instructions: Acetaminophen (By mouth), Oxycodone/Acetaminophen (By mouth), Aspirin (By mouth), Oxycodone, Rapid Release (By mouth), Total Knee Replacement (DC), Total Knee Replacement (GEN), Joint Replacement Stoplight, Opioid Safety Activity Restrictions/Additional Instructions: Ice and elevation to left lower extremity. Maintain dressing as instructed. You may shower. Range of motion, gait training, and strengthening per physical therapy. Discharge Attestations Time Spent in Discharge Care*: greater than 30 min Specific Discharge Activities: educating patient, documenting/other paperwork and evaluating patient/reviewing data Quality Metrics Clinical Quality Measures [ No reported AMI, CVA or VTE this stay] Coding Level of Care Code Acute Code for Chg Fwd Diagnoses Status post total left knee replacement not using cement Z96.652 Primary osteoarthritis of left knee M17.12
[2022-12-19 13:40] VITALS: PULSE 71; RESP 18
--- NOTE | 2022-12-19 14:13 | PC.NURSE ---
Pt is discharged and awaiting meds to bed in pt room as of 1410 on 12/19/22.
[2022-12-19 14:56] VITALS: PULSE 71; RESP 18
== END 2022-12-19 14:56 | disposition home health service (06) ==
PROVIDERS: Admitting Provider Specialist; PCP Nurse Practitioner; Visit Provider Specialist
PROC: 8E0Y0CZ Robotic Assisted Procedure of Lower Extremity, Open Approach (ICD-10-PCS; CPT 27447; principal; 2022-12-18 13:40)
DX: M17.12 Unilateral primary osteoarthritis, left knee (principal); I10 Essential (primary) hypertension; K21.9 Gastro-esophageal reflux disease without esophagitis; J44.9 Chronic obstructive pulmonary disease, unspecified; Z87.891 Personal history of nicotine dependence
CPT/HCPCS: 27447; 36415; 51702; 72170; 73560; 80048; 85025; 97110; 97116; 97161; 97165; C1776; C9290; G0378; J0131; J0360; J0690; J1100; J1170; J1790; J2405; J2704; J2795; J3010; J3370; J3490; J7030

== ENCOUNTER → 2023-01-02 09:56 | Outpatient (BNVA) | payer OTHER, SELFPAY | PROVIDERS: PCP Nurse Practitioner; Visit Provider Nurse Practitioner | DX: Z96.652 Presence of left artificial knee joint (principal); M17.12 Unilateral primary osteoarthritis, left knee | CPT/HCPCS: 73562; 99024 ==

== ENCOUNTER → 2023-02-11 07:58 | Outpatient (BNVA) | payer OTHER, SELFPAY | PROVIDERS: PCP Nurse Practitioner; Visit Provider Nurse Practitioner | DX: Z96.652 Presence of left artificial knee joint (principal); M17.12 Unilateral primary osteoarthritis, left knee | CPT/HCPCS: 73560; 73565; 99024 ==

== ENCOUNTER → 2023-03-25 07:58 | Outpatient (BNVA) | payer OTHER, SELFPAY | PROVIDERS: PCP Nurse Practitioner; Visit Provider Nurse Practitioner | DX: Z96.652 Presence of left artificial knee joint (principal); M17.12 Unilateral primary osteoarthritis, left knee | CPT/HCPCS: 73560; 73565; 99024 ==

== ENCOUNTER → 2023-04-04 08:50 | Outpatient (BNVA) | payer OTHER, SELFPAY | PROVIDERS: PCP Nurse Practitioner; Visit Provider Specialist | DX: M12.811 Other specific arthropathies, not elsewhere classified, right shoulder (principal); Z71.89 Other specified counseling | CPT/HCPCS: 20610; J1100; J2795; J3301 ==

== ENCOUNTER → 2023-05-06 10:44 | Outpatient (BNVA) | payer OTHER, SELFPAY | PROVIDERS: PCP Nurse Practitioner; Visit Provider Nurse Practitioner | DX: Z96.652 Presence of left artificial knee joint (principal); M17.12 Unilateral primary osteoarthritis, left knee | CPT/HCPCS: 73560; 73565; 99213 ==

== ENCOUNTER → 2023-07-01 08:26 | Outpatient (BNVA) | payer OTHER, SELFPAY | PROVIDERS: PCP Nurse Practitioner; Visit Provider Specialist | DX: Z96.652 Presence of left artificial knee joint (principal); M17.12 Unilateral primary osteoarthritis, left knee | CPT/HCPCS: 73560; 73565; 99213 ==

== ENCOUNTER → 2023-08-09 08:25 | Outpatient (BNVA) | payer OTHER, SELFPAY | PROVIDERS: PCP Nurse Practitioner; Visit Provider Specialist | DX: M12.811 Other specific arthropathies, not elsewhere classified, right shoulder; Z71.89 Other specified counseling | CPT/HCPCS: 20610; J1100; J2795; J3301 ==

== ENCOUNTER 2023-09-26 15:31 | Outpatient (CLI) | payer OTHER, SELFPAY ==
[2023-09-26 17:33] LABS: Prostate Specific Antigen < 0.014 ng/mL (0-4)
== END 2023-09-26 15:32 | disposition home or self-care (01) ==
LOC: LAB 15:37
PROVIDERS: PCP Nurse Practitioner; Visit Provider Urology
DX: Z12.5 Encounter for screening for malignant neoplasm of prostate (principal)
CPT/HCPCS: 36415; 84153

== ENCOUNTER → 2023-11-29 08:44 | Outpatient (BNVA) | payer OTHER, SELFPAY | PROVIDERS: PCP Nurse Practitioner; Visit Provider Specialist | DX: M25.511 Pain in right shoulder (principal); Z71.89 Other specified counseling | CPT/HCPCS: 20610 ==

== ENCOUNTER → 2024-01-22 08:15 | Outpatient (BNVA) | payer OTHER, SELFPAY | PROVIDERS: PCP Nurse Practitioner; Visit Provider Specialist | DX: Z96.652 Presence of left artificial knee joint (principal); M17.12 Unilateral primary osteoarthritis, left knee | CPT/HCPCS: 73560; 73565; 99024 ==

== ENCOUNTER 2024-03-05 07:46 | Oncology outpatient (recurring) (ONCR) | payer OTHER, SELFPAY ==
[2024-03-05 09:42] LABS: Basophils # 0.1 10^3/uL (0.0-0.1); Basophils % 1.1 %; Eosinophils # 0.2 10^3/uL (0.0-0.8); Eosinophils % 2.3 %; Hematocrit 47.2 % (37-53); Lymphocytes # 1.8 10^3/uL (0.8-4.8); Lymphocytes % 27.1 %; Mean Corpuscular HGB Conc 30.3 g/dL (30-55); Mean Corpuscular Hemoglobin 23.8 pg (27-33); Mean Corpuscular Volume 78.4 fl (82-101); Mean Platelet Volume 10.2 fL (7.4-10.4); Monocytes # 0.6 10^3/uL (0.2-0.9); Monocytes % 9.5 %; Neutrophils # 3.85 10^3/uL (1.8-7.7); Neutrophils % 59.7 %; Nucleated Red Blood Cells % 0 %; Platelet Count 159 10^3/cmm (157-399); Red Blood Count 6.02 10^6/uL (3.85-5.65); Red Cell Distribution Width 16.7 % (12.1-15.1); White Blood Count 6.45 10^3/uL (3.29-11.43)
[2024-03-05 10:04] LABS: Alanine Aminotransferase 21 U/L (0-41); Albumin Level 4.1 g/dL (3.5-5.2); Alkaline Phosphatase 76 U/L (40-130); Blood Urea Nitrogen 15 mg/dL (8-23); Calcium 9.5 mg/dL (8.5-10.5); Carbon Dioxide 28 mmol/L (22-29); Chloride 98 mmol/L (98-107); Creatinine Clr Calc Pharmacy 93.6601; Globulin 2.7 g/dL (1.3-4.6); Glucose 83 mg/dL (65-115); Osmolality Calculated 282 mOsm/kg (285-295); Sodium 136 mmol/L (136-145); Total Bilirubin 0.3 mg/dL (0.15-1.2); Total Protein 6.8 g/dL (6.6-8.7); Uric Acid 3.5 mg/dL (3.4-7.0)
[2024-03-05 10:10] LABS: Anion Gap 13.9 (5-19); Aspartate Amino Transferase 22 U/L (0-40); Lactate Dehydrogenase 196 U/L (135-225); Potassium 3.9 mmol/L (3.5-5.1)
[2024-03-05 11:57] LABS: Ferritin 24 ng/mL (30-400); Iron 33 ug/dL (59-158)
[2024-03-06 07:35] LABS: Beta-2-Microglobulin 2.16 mg/L (< OR = 2.51)
== END 2024-03-05 23:59 | disposition home or self-care (01) ==
PROVIDERS: PCP Nurse Practitioner; Visit Provider Internal Medicine
DX: C61 Malignant neoplasm of prostate (principal); D69.6 Thrombocytopenia, unspecified; D75.1 Secondary polycythemia; E83.110 Hereditary hemochromatosis; R53.83 Other fatigue; K21.9 Gastro-esophageal reflux disease without esophagitis; Z96.652 Presence of left artificial knee joint
CPT/HCPCS: 36415; 80053; 82232; 82728; 83540; 83615; 84550; 85025; 86140; 99214

== ENCOUNTER 2024-06-04 07:51 | Oncology outpatient (recurring) (ONCR) | payer OTHER, SELFPAY ==
[2024-06-04 08:53] LABS: Basophils # 0.1 10^3/uL (0.0-0.1); Basophils % 1.3 %; Eosinophils # 0.2 10^3/uL (0.0-0.8); Eosinophils % 3.5 %; Hematocrit 50.5 % (37-53); Lymphocytes # 1.2 10^3/uL (0.8-4.8); Lymphocytes % 21.6 %; Mean Corpuscular HGB Conc 30.5 g/dL (30-55); Mean Corpuscular Hemoglobin 23.9 pg (27-33); Mean Corpuscular Volume 78.3 fl (82-101); Mean Platelet Volume 11.1 fL (7.4-10.4); Monocytes # 0.5 10^3/uL (0.2-0.9); Monocytes % 9.1 %; Neutrophils # 3.47 10^3/uL (1.8-7.7); Neutrophils % 64.1 %; Nucleated Red Blood Cells % 0 %; Platelet Count 147 10^3/cmm (157-399); Red Blood Count 6.45 10^6/uL (3.85-5.65); White Blood Count 5.41 10^3/uL (3.29-11.43)
[2024-06-04 09:12] LABS: Alanine Aminotransferase 15 U/L (0-41); Albumin Level 4.9 g/dL (3.5-5.2); Alkaline Phosphatase 73 U/L (40-130); Aspartate Amino Transferase 19 U/L (0-40); Blood Urea Nitrogen 16 mg/dL (8-23); Calcium 9.9 mg/dL (8.5-10.5); Carbon Dioxide 29 mmol/L (22-29); Chloride 100 mmol/L (98-107); Ferritin 20 ng/mL (30-400); Globulin 2.6 g/dL (1.3-4.6); Glucose 109 mg/dL (65-115); Iron 52 ug/dL (59-158); Lactate Dehydrogenase 156 U/L (135-225); Osmolality Calculated 296 mOsm/kg (285-295); Sodium 142 mmol/L (136-145); Total Bilirubin 0.6 mg/dL (0.15-1.2); Total Protein 7.5 g/dL (6.6-8.7)
[2024-06-05 06:18] LABS: Beta-2-Microglobulin 2.48 mg/L (< OR = 2.51)
== END 2024-06-08 23:59 | disposition home or self-care (01) ==
PROVIDERS: PCP Nurse Practitioner; Visit Provider Internal Medicine
DX: C61 Malignant neoplasm of prostate (principal); D69.6 Thrombocytopenia, unspecified; D75.1 Secondary polycythemia; E83.110 Hereditary hemochromatosis; R53.83 Other fatigue; K21.9 Gastro-esophageal reflux disease without esophagitis; I10 Essential (primary) hypertension; E11.9 Type 2 diabetes mellitus without complications; D64.9 Anemia, unspecified; M17.0 Bilateral primary osteoarthritis of knee; Z96.652 Presence of left artificial knee joint
CPT/HCPCS: 36415; 80053; 82232; 82728; 83540; 83615; 84550; 86140; 99213

== ENCOUNTER 2024-06-10 08:25 | Outpatient (CLI) | payer OTHER, SELFPAY ==
--- NOTE | 2024-06-10 08:32 | USCV_ITS ---
Ankush Stubbs Age: 73 Gender: M : 1950 Exam Date: 06/10/2024 08:37 Ordering Phys: Flakita Guevara Technologist: ZENAIDA Exam Location: [facility] – [place] Indication: AAA screening HISTORY: Diameter (cm) AP x Transverse x Length Velocity (cm/s) Waveform Prox Aorta: 1.56 x 1.52 x 59.20 Biphasic Mid Aorta: 1.91 x 2.15 x 66.00 Biphasic Distal Aorta: 1.10 x 1.42 x 62.90 Biphasic Right Iliac Prox: 0.93 x 0.96 x 61.70 Biphasic Left Iliac Prox: 0.85 x 0.95 x 87.70 Biphasic Stent Prox Landing x x Aneurysmal Sac Max x x Lt Lat Sac Dim Rt Lat Sac Dim Stent Dist Landing x x Right Iliac Stent x x Left Iliac Stent x x Right Renal Art Left Renal Art FINDINGS: Comparison: none available. Ectatic abdominal aorta with evidence of atherosclerotic plaque noted. There is evidence of atherosclerotic plaque no significan stenosis in the right common iliac artery. There is evidence of atherosclerotic plaque no significan stenosis in the left common iliac artery. No evidence of abdominal aortic aneurysm. CONCLUSIONS No evidence of abdominal aortic or bilateral iliac aneurysm. Dr. Nelly Payan DO (Electronically Signed) Final Date: 10 June 2024 12:38 S
== END 2024-06-10 08:26 | disposition home or self-care (01) ==
PROVIDERS: PCP Nurse Practitioner; Visit Provider Nurse Practitioner
DX: Z01.89 Encounter for other specified special examinations (principal); I77.811 Abdominal aortic ectasia; I70.0 Atherosclerosis of aorta; I70.8 Atherosclerosis of other arteries
CPT/HCPCS: 76706

== ENCOUNTER → 2024-06-19 09:43 | Outpatient (BNVA) | payer OTHER, SELFPAY | PROVIDERS: PCP Nurse Practitioner; Visit Provider Specialist | DX: M12.811 Other specific arthropathies, not elsewhere classified, right shoulder (principal); Z71.89 Other specified counseling | CPT/HCPCS: 20610; J1100; J2795; J3301; J9999 ==

== ENCOUNTER 2024-09-03 12:32 | Oncology outpatient (recurring) (ONCR) | payer OTHER, SELFPAY ==
[2024-09-03 13:57] LABS: Alanine Aminotransferase 11 U/L (0-41); Albumin Level 4.1 g/dL (3.5-5.2); Alkaline Phosphatase 60 U/L (40-130); Anion Gap 15.5 (5-19); Aspartate Amino Transferase 16 U/L (0-40); Blood Urea Nitrogen 15 mg/dL (8-23); Carbon Dioxide 26 mmol/L (22-29); Chloride 101 mmol/L (98-107); Ferritin 18 ng/mL (30-400); Globulin 2.2 g/dL (1.3-4.6); Glucose 151 mg/dL (65-115); Iron 37 ug/dL (59-158); Lactate Dehydrogenase 149 U/L (135-225); Osmolality Calculated 292 mOsm/kg (285-295); Percent Saturation 11.4 % (20-50); Potassium 3.5 mmol/L (3.5-5.1); Sodium 139 mmol/L (136-145); Total Bilirubin 0.3 mg/dL (0.15-1.2); Total Iron Binding Capacity 323 mcg/dl; Total Protein 6.3 g/dL (6.6-8.7); Unsaturated Iron Binding 286 ug/dL (112-347)
[2024-09-03 15:25] VITALS: BP 125/77; PULSE 93; RESP 18; TEMP 36.7; O2SAT 93
[2024-09-03 17:19] LABS: Basophils # 0.1 10^3/uL (0.0-0.1); Basophils % 1.7 %; Eosinophils # 0.2 10^3/uL (0.0-0.8); Eosinophils % 3.5 %; Hematocrit 46.3 % (37-53); Lymphocytes # 1.2 10^3/uL (0.8-4.8); Lymphocytes % 22.6 %; Mean Corpuscular HGB Conc 30.2 g/dL (30-55); Mean Corpuscular Hemoglobin 23.9 pg (27-33); Mean Corpuscular Volume 79.1 fl (82-101); Monocytes # 0.4 10^3/uL (0.2-0.9); Monocytes % 7.4 %; Neutrophils # 3.52 10^3/uL (1.8-7.7); Neutrophils % 64.6 %; Nucleated Red Blood Cells % 0 %; Platelet Count 150 10^3/cmm (157-399); Red Blood Count 5.85 10^6/uL (3.85-5.65); Red Cell Distribution Width 16.1 % (12.1-15.1); White Blood Count 5.44 10^3/uL (3.29-11.43)
[2024-09-08 12:40] LABS: Erythropoietin 51.5 mIU/mL (2.6-18.5)
== END 2024-09-07 23:59 | disposition home or self-care (01) ==
PROVIDERS: Internal Medicine; PCP Nurse Practitioner; Visit Provider Internal Medicine
DX: D75.1 Secondary polycythemia (principal); D69.6 Thrombocytopenia, unspecified; C61 Malignant neoplasm of prostate; I10 Essential (primary) hypertension; M54.50 Low back pain, unspecified; E83.110 Hereditary hemochromatosis; R53.83 Other fatigue; K21.9 Gastro-esophageal reflux disease without esophagitis; Z85.46 Personal history of malignant neoplasm of prostate
CPT/HCPCS: 36415; 80053; 82232; 82668; 82728; 83540; 83550; 83615; 86140; 99214

== ENCOUNTER 2024-09-29 09:10 | Outpatient (CLI) | payer OTHER, SELFPAY ==
[2024-09-29 10:22] LABS: Prostate Specific Antigen 0.091 ng/mL (0-4)
== END 2024-09-29 09:11 | disposition home or self-care (01) ==
PROVIDERS: PCP Nurse Practitioner; Visit Provider Urology
DX: C61 Malignant neoplasm of prostate (principal); D69.6 Thrombocytopenia, unspecified; D75.1 Secondary polycythemia; E83.110 Hereditary hemochromatosis; R53.83 Other fatigue; K21.9 Gastro-esophageal reflux disease without esophagitis
CPT/HCPCS: 36415; 84153

== ENCOUNTER → 2024-10-23 09:58 | Outpatient (BNVA) | payer OTHER, SELFPAY | PROVIDERS: PCP Nurse Practitioner; Visit Provider Specialist | DX: M12.811 Other specific arthropathies, not elsewhere classified, right shoulder (principal) | CPT/HCPCS: 20610; J1100; J2795; J3301; J9999 ==

== ENCOUNTER 2024-12-17 07:09 | Outpatient (CLI) | payer OTHER, SELFPAY ==
--- NOTE | 2024-12-17 07:17 | USCV_ITS ---
Ankush Stubbs Age: 74 Gender: M : 1950 Exam Date: 12/17/2024 07:39 Ordering Phys: Flakita Guevara Technologist: ANETTE [place]am [place] [facility] [place]ication: AAA Screening HISTORY: Diameter (cm) AP x Transverse x Length Velocity (cm/s) Waveform Prox Aorta: 2.10 x 2.00 x 66.00 Triphasic Mid Aorta: 2.10 x 2.40 x 77.20 Triphasic Distal Aorta: 2.40 x 2.20 x 39.60 Triphasic Right Iliac Prox: 1.24 x 0.96 x 52.40 Triphasic Left Iliac Prox: 1.16 x 1.05 x 63.90 Triphasic Stent Prox Landing x x Aneurysmal Sac Max x x Lt Lat Sac Dim Rt Lat Sac Dim Stent Dist Landing x x Right Iliac Stent x x Left Iliac Stent x x Right Renal Art Left Renal Art FINDINGS: CONCLUSIONS No evidence of abdominal aortic or bilateral iliac aneurysm. Moderate aortic atheromatous disease Roney Salguero MD (Electronically Signed) Final Date: 17 December 2024 13:51 S
== END 2024-12-17 07:10 | disposition home or self-care (01) ==
LOC: RAD 07:09
PROVIDERS: PCP Nurse Practitioner; Visit Provider Nurse Practitioner
DX: Z13.6 Encounter for screening for cardiovascular disorders (principal); I70.0 Atherosclerosis of aorta
CPT/HCPCS: 76706

== ENCOUNTER 2024-12-31 11:05 | Oncology outpatient (recurring) (ONCR) | payer OTHER, SELFPAY ==
[2024-12-31 11:43] LABS: Hematocrit 48.2 % (37-53); Hemoglobin 15.00 g/dL (11.27-16.99); Mean Corpuscular HGB Conc 31.1 g/dL (30-55); Mean Corpuscular Hemoglobin 24.8 pg (27-33); Mean Corpuscular Volume 79.7 fl (82-101); Nucleated Red Blood Cells % 0 %; Platelet Count 174 10^3/cmm (157-399); Red Blood Count 6.05 10^6/uL (3.85-5.65); White Blood Count 5.97 10^3/uL (3.29-11.43)
[2024-12-31 12:12] LABS: Alanine Aminotransferase 13 U/L (0-41); Albumin Level 4.5 g/dL (3.5-5.2); Alkaline Phosphatase 67 U/L (40-130); Anion Gap 16.9 (5-19); Aspartate Amino Transferase 19 U/L (0-40); Blood Urea Nitrogen 20 mg/dL (8-23); Calcium 9.5 mg/dL (8.5-10.5); Carbon Dioxide 26 mmol/L (22-29); Chloride 99 mmol/L (98-107); Creatinine Clr Calc Pharmacy 91.8077; Ferritin 20 ng/mL (30-400); Globulin 2.9 g/dL (1.3-4.6); Glucose 102 mg/dL (65-115); Iron 54 ug/dL (59-158); Osmolality Calculated 289 mOsm/kg (285-295); Potassium 3.9 mmol/L (3.5-5.1); Prostate Specific Antigen 0.068 ng/mL (0-4); Sodium 138 mmol/L (136-145); Total Iron Binding Capacity 374 mcg/dl; Total Protein 7.4 g/dL (6.6-8.7); Unsaturated Iron Binding 320 ug/dL (112-347)
[2024-12-31 12:41] LABS: Uric Acid 3.8 mg/dL (3.4-7.0)
== END 2025-01-08 23:59 | disposition home or self-care (01) ==
PROVIDERS: Internal Medicine; PCP Nurse Practitioner; Visit Provider Internal Medicine
DX: Z53.9 Procedure and treatment not carried out, unspecified reason; D69.6 Thrombocytopenia, unspecified; D75.1 Secondary polycythemia; E83.110 Hereditary hemochromatosis; R53.83 Other fatigue; K21.9 Gastro-esophageal reflux disease without esophagitis; Z85.46 Personal history of malignant neoplasm of prostate; Z92.3 Personal history of irradiation
CPT/HCPCS: 36415; 80053; 82728; 82746; 83540; 83550; 83615; 84153; 84550; 85025; 86140; 99214

== ENCOUNTER → 2025-01-22 10:40 | Outpatient (BNVA) | payer OTHER, SELFPAY | PROVIDERS: PCP Nurse Practitioner; Visit Provider Specialist | DX: M12.811 Other specific arthropathies, not elsewhere classified, right shoulder (principal) | CPT/HCPCS: 20610; J1100; J2795; J3301; J9999 ==